=== PATIENT | male | born 1990 | race Caucasian/White ===

== ENCOUNTER 2019-10-05 10:35 | Outpatient (CLI) | payer OTHER, SELFPAY ==
[2019-10-05 11:50] LABS: Hemoglobin A1C 11.5 % (<5.7)
[2019-10-05 12:11] LABS: Basophils Absolute Auto 0.03 K/mm3 (0.00-0.10); Basophils Percent Auto 0.5 % (0.0-1.0); Eosinophils Absolute Auto 0.06 K/mm3 (0.02-0.50); Hematocrit 46.1 % (40.0-54.0); Hemoglobin 15.9 g/dL (14.0-18.0); Immature Granulocyte Absolute 0.03 K/mm3 (0.00-0.00); Immature Granulocyte Percent A 0.5 % (0.0-0.0); Lymphocytes Absolute Auto 1.52 K/mm3 (1.10-4.50); Mean Corpuscular HGB Conc 34.5 g/dL (32.0-36.0); Mean Corpuscular Hemoglobin 29.5 pg (27.0-31.0); Mean Corpuscular Volume 85.5 fL (78.0-102.0); Mean Platelet Volume 11.6 fl (8.7-11.0); Monocytes Absolute Auto 0.37 K/mm3 (0.10-0.90); Monocytes Percent Auto 6.3 % (2.0-11.0); Neutrophils Absolute Auto 3.8 K/mm3 (1.7-7.2); Neutrophils Percent Auto 65.7 % (50.0-70.0); Platelet Count Result 213 K/mm3 (150-420); Red Blood Count 5.39 M/mm3 (4.70-6.10); Red Cell Distribution Width 12.1 % (11.6-14.4); White Blood Count 5.8 K/mm3 (4.8-10.8)
[2019-10-05 12:17] LABS: Creatinine Urine 99.03 mg/dL (40-278)
[2019-10-05 12:19] LABS: MALB Creatinine Ratio 21.8 mg/g (0-30); Microalbumin Urine Random 21.6 mg/L
[2019-10-05 12:25] LABS: Alanine Aminotransferase 84 U/L (16-63); Alkaline Phosphatase 104 U/L (46-116); Anion Gap 18.1 mmol/L (7-16); Aspartate Amino Transferase 33 U/L (15-37); Bilirubin,Total 0.7 mg/dL (0.00-1.00); Blood Urea Nitrogen 21 mg/dL (7-18); Calcium 8.5 mg/dL (8.5-10.1); Carbon Dioxide 24 mmol/L (21-32); Chloride 99 mmol/L (98-108); Cholesterol 167 mg/dL (0-200); Estimated Glomerular Filt Rate > 60; Glucose 307 mg/dL (70-99); HDL Direct 30 mg/dL (40-60); LDL Cholesterol Calculated 79 mg/dL (<130); Osmolality Calculated 299 mOsm/kg (285-295); Potassium 4.1 mmol/L (3.5-5.1); Sodium 137 mmol/L (136-145); Total Protein 6.8 g/dL (6.4-8.2); Triglycerides 292 mg/dL (0-150)
[2019-10-07 04:27] LABS: Insulin Level Total 7.9 uIU/mL (<=19.6)
[2019-10-08 02:53] LABS: C-Peptide 2.37 ng/mL (0.80-3.85)
[2019-10-10 20:12] LABS: Zinc Transporter 8 Antibody <10 U/mL (<15)
== END 2019-10-05 10:36 | disposition home or self-care (01) ==
LOC: CHSLAB 11:27
PROVIDERS: PCP Family Medicine; Visit Provider Family Medicine
DX: R73.9 Hyperglycemia, unspecified (principal)
CPT/HCPCS: 36415; 80053; 80061; 82043; 83036; 83525; 84681; 85025; 86337; 86341

== ENCOUNTER 2019-11-19 22:25 | Inpatient (IN) | payer OTHER, SELFPAY ==
--- NOTE | ~2019-11-19 | CT_ITS ---
EXAMINATION: CT LE LT w con DATE: 11/20/2019 12:31 INDICATION: Left posterior thigh swelling. TECHNIQUE: Computed tomography (CT) of the left thigh was performed with 100 mL Omnipaque 350 intrave nous contrast. Automated exposure control and iterative reconstruction technique were employed. The d ose-length product was 1055.27 mGy-cm. COMPARISON: None FINDINGS: Bone alignment is normal. No fracture. There is mild left hip osteoarthritis. There is mild left knee osteoarthritis. In the posterior thigh, there is subcutaneous fat stranding and skin thick ening, consistent with cellulitis. No drainable abscess. IMPRESSION: 1. Posterior left thigh cellulitis. No abscess. Reviewed, dictated and finalized at location A.
[2019-11-19 22:36] VITALS: BP 140/79; PULSE 101; RESP 18; TEMP 36.6; O2SAT 96
--- NOTE | 2019-11-19 22:58 | ED.WOUNDLAC ---
HPI - Wound/Laceration General Chief Complaint: Wound/Laceration Stated Complaint: infection. told by doc to come in if needed Source: patient Mode of arrival: ambulatory Limitations: no limitations History of Present Illness HPI narrative: Is a 29-year-old gentleman that presents with cellulitis to his right posterior upper leg with an area of erythema with a central lesion that has been draining, he saw his primary care physician today and a line of demarcation was some drawn and has been on antibiotics. Currently the patient presents to the emergency department because the area of demarcation the erythema has extended beyond that according to the patient's . In the patient's notes from his PCP states that the area of demarcation has receded. Currently the area is warm nontender with currently some mild drainage with no fever or chills. Onset (ago): day(s) Extremity Location: Right: thigh Body four view annotation: 1. area of erythema Place: home Patient tetanus UTD: Yes Associated symptoms: none Related Data Home Medications Medication Instructions Recorded Confirmed insulin glargine [Lantus Solostar 10 unit SUBCUT DAILY 11/19/19 11/19/19 U-100 Insulin] Allergies Allergy/AdvReac Type Severity Reaction Status Date / Time sulfamethoxazole AdvReac Intermediate thrush Verified 11/19/19 09:03 [From Bactrim] trimethoprim [From Bactrim] AdvReac Intermediate thrush Verified 11/19/19 09:03 Review of Systems Review of Systems: All systems reviewed & are unremarkable except as noted in HPI and below PMFSH Past Medical History Medical History No active medical problems Surgical History Surgical History No history of previous surgery Family History Family History Father Diabetes mellitus Mother Diabetes mellitus Social History Social History Smoking status: Never smoker Additional living arrangements comments: Lives with maximino. 1 daughter Additional occupation/education comments: [employer] in [place] Exam Const: General: no acute distress and alert Orientation/consciousness: patient oriented x3 HENMT: Head: normal to inspection Eyes: Conjunctivae: conjunctivae normal Pupils: Equal, round and reactive pupils present Neck: Neck: normal visual inspection and no lymphadenopathy Chest: Chest palpation & inspection: normal inspection of the chest Resp: Effort & Inspection: normal respiratory effort Cardio: Rate: regular rate Rhythm: regular rhythm GI: GI Palp: Yes Soft to palpation Percussion: Yes normal to percussion Urinary Catheter: Urinary Catheter: patent and draining Skin: Wounds: wounds noted ( Area of erythema to warm and tender currently no drainage right thigh) Neuro: General: patient oriented x3 and moves all extremities Extrem: General: normal to inspection Psych: Appearance: grossly normal Mental Status: mental status grossly normal Course Course Emergency Course: patient here because he believes the area of erythema has extended beyond the area of demarcation that his primary care physician gerardo on his posterior thigh today. Currently no fevers, offer the patient a shot of ceftriaxone and patient was advised to continue his antibiotics and follow-up with his primary care physician once again if he feels that the area is extending be on the area of demarcation or if any fevers develops. Vital Signs Vital signs: Vital Signs Temperature 36.6 C 11/19/19 22:36 Pulse Rate 101 H 11/19/19 22:36 Respiratory Rate 18 11/19/19 22:36 Blood Pressure 140/79 11/19/19 22:36 Pulse Oximetry 96 11/19/19 22:36 Temperature 36.6 C 11/19/19 22:36 Pulse Rate 101 H 11/19/19 22:36 Respiratory Rate 18
--- NOTE | 2019-11-19 23:23 | PC.NURSE ---
REPORT PROVIDED TO SONJA THOMPSON
[2019-11-19 23:33] LABS: Hematocrit 44.8 % (40.0-54.0); Hemoglobin 15.1 g/dL (14.0-18.0); Mean Corpuscular HGB Conc 33.7 g/dL (32.0-36.0); Mean Corpuscular Hemoglobin 29.4 pg (27.0-31.0); Mean Corpuscular Volume 87.3 fL (78.0-102.0); Mean Platelet Volume 9.9 fl (8.7-11.0); Platelet Count Result 283 K/mm3 (150-420); Red Blood Count 5.13 M/mm3 (4.70-6.10); Red Cell Distribution Width 12.4 % (11.6-14.4); White Blood Count 10.3 K/mm3 (4.8-10.8)
[2019-11-19 23:52] VITALS: BP 142/79; PULSE 100; RESP 18; TEMP 36.6; O2SAT 98
[2019-11-20] VITALS (7 sets, daily range): BP systolic 120–142; BP diastolic 67–89; PULSE 72–92; RESP 16–20; TEMP 36.4–37.1; O2SAT 95–98; BMI 59.5
[2019-11-20] MEDS: SODIUM CHLORIDE 0.9% IV 1,000 ML 100 ML IV CONT ×2 (01:21→11:13)
--- NOTE | 2019-11-20 02:01 | PC.NURSE ---
0005 Pt admitted to the floor as a 23 hr observation. Pt is alert and oriented x4 and states he has had the cellulitis on the back of his thigh since Saturday. Small amount of bloody drainage coming from the center of the sore. Pt states the site is painful to touch.
--- NOTE | 2019-11-20 02:06 | PC.NURSE ---
Pt resting in bed and playing a video game. No other concerns voiced.
--- NOTE | 2019-11-20 02:07 | PC.NURSE ---
0120 IV fluid infusing as ordered. Wound site measure and photographed.
--- NOTE | 2019-11-20 03:09 | PC.NURSE ---
Pt given a snack of soda, cottage cheese and gelatin per his request. Pt doesnt voice any c/o discomfort and IV fluid continues to infuse as ordered.
--- NOTE | 2019-11-20 04:35 | PC.NURSE ---
Pt states he is going to try to get some sleep; Pt doesnt voice any c/o pain or discomfort. IV fluid continues to infuse as ordered.
--- NOTE | 2019-11-20 05:35 | PC.NURSE ---
Pt asleep and IV fluid continues to infuse as ordered. No signs of discomfort noted.
--- NOTE | 2019-11-20 06:46 | PC.NURSE ---
[facility] called regarding pt's lantus order and need for order clarification. Notified Dr. Yousif regarding the order and new orders were received and noted.
[2019-11-20] MEDS: MORPHINE SULFATE 2 MG/ML INJ IV PUSH (07:19)
[2019-11-20 07:40] LABS: Glucose Point of Care 100 (65-105)
[2019-11-20 08:12] LABS: Basophils Absolute Auto 0.02 K/mm3 (0.00-0.10); Basophils Percent Auto 0.3 % (0.0-1.0); Eosinophils Absolute Auto 0.05 K/mm3 (0.02-0.50); Eosinophils Percent Auto 0.7 % (1.0-6.0); Hematocrit 41.5 % (40.0-54.0); Hemoglobin 14.1 g/dL (14.0-18.0); Immature Granulocyte Absolute 0.03 K/mm3 (0.00-0.00); Immature Granulocyte Percent A 0.4 % (0.0-0.0); Lymphocytes Percent Auto 26.1 % (18.0-42.0); Mean Corpuscular Hemoglobin 29.9 pg (27.0-31.0); Mean Corpuscular Volume 87.9 fL (78.0-102.0); Mean Platelet Volume 9.6 fl (8.7-11.0); Monocytes Percent Auto 9.1 % (2.0-11.0); Neutrophils Absolute Auto 4.9 K/mm3 (1.7-7.2); Neutrophils Percent Auto 63.4 % (50.0-70.0); Platelet Count Result 236 K/mm3 (150-420); Red Blood Count 4.72 M/mm3 (4.70-6.10); Red Cell Distribution Width 12.4 % (11.6-14.4); White Blood Count 7.7 K/mm3 (4.8-10.8)
[2019-11-20] MEDS: terbinafine HCL 250 MG TABLET PO (08:16)
[2019-11-20] MEDS: metFORMIN HCL 500 MG TABLET 1000 MG PO ×2 (08:16→17:42)
[2019-11-20 08:28] LABS: Alanine Aminotransferase 44 U/L (16-63); Albumin Level 3.3 g/dL (3.4-5.0); Alkaline Phosphatase 55 U/L (46-116); Aspartate Amino Transferase 31 U/L (15-37); Bilirubin,Total 0.5 mg/dL (0.00-1.00); Blood Urea Nitrogen 15 mg/dL (7-18); Calcium 8.3 mg/dL (8.5-10.1); Carbon Dioxide 26 mmol/L (21-32); Chloride 102 mmol/L (98-108); Estimated CRCL calculation 157 ml/min; Estimated Glomerular Filt Rate > 60; Glucose 102 mg/dL (70-99); Osmolality Calculated 288 mOsm/kg (285-295); Sodium 139 mmol/L (136-145); Total Protein 6.8 g/dL (6.4-8.2)
[2019-11-20 08:33] LABS: Hemoglobin A1C 8.2 % (<5.7)
--- NOTE | 2019-11-20 10:00 | PHAR ---
11/20/19: VERIFIED HOME MEDS. TLS
[2019-11-20 11:01] LABS: Add Urine Microscopic? NO; Appearance Urine Clear (Clear); Bilirubin Urine Negative (Negative); Blood Urine Negative (Negative); Color Urine Yellow (Yellow); Glucose Urine UA Negative (Negative); Ketones Urine Negative (Negative); Leukocyte Esterase Ur Negative (Negative); Nitrate Urine Negative (Negative); Protein Urine Negative (Negative); Specific Grav Ur 1.025 (1.010-1.020); Urobilinogen Urine 0.2 mg/dL (0.2-1.0)
[2019-11-20] MEDS: ONDANSETRON INJ 4 MG/2 ML VIAL IV PUSH (11:14)
[2019-11-20 11:26] LABS: Glucose Point of Care 96 (65-105)
--- NOTE | 2019-11-20 14:17 | PC.NURSE ---
Changed to inpatient status
--- NOTE | 2019-11-20 16:51 | PM.IMHP ---
H&P: HPI History of Present Illness Chief complaint: Cellulitis Narrative: Du Rodríguez is a 29 year old male that presented yesterday to the ER with cellulitis to his left posterior upper leg with an area of erythema with a central lesion that has been draining. He saw his primary care physician Dr. Fay yesterday and a line of demarcation was drawn with a permanent marker so that any progress or worsening could be easily seen. Du has failed his outpatient oral antibiotics that he had been on for more than 48 hours prior to his admission. He has started his oral antibiotics Clindamycin on SaturdayNovember 16. He presented to the emergency room because the area of demarcation was overcome with erythema and the erythema was extending well beyond the permanent marker. At his admission, the area was warm nontender with currently some mild drainage with no fever or chills. Today upon examination, there is a circular area of cellulitis on his posterior left upper leg, with erythema, with a crusted lesion in the center, with significant pain to the touch and warmth. The crusted lesion is at times opening up and draining. The area it to palpation feels very firm and solid, full of inflammation. The patient visibly flinched even with gentle touch and verbally expressed pain. Du is very concerned today as he informed me he has had staph infections in the past citing at least 3 different episodes of MRSA in the past. He was specifically concerned about a past staph infection he had to his chest that became so deep it spread into his chest and rib /chest wall and he had to have surgical intervention and debridement completed. He is very concerned that this new site on his leg will get deeper and or require surgery, and he wants to do everything he can to avoid that. He does have a history of insulin dependent diabetes with elevated A1c levels, 11.5 on 10/05/19 and more recently 8.2 on 11/20/19. We will continue to maintain tight control on his glucose levels, culturing the wound today, monitoring blood and urine cultures, changing his antibiotic from Rocephin to oral Doxycycline paired with IV Vancomycin. Since this is the patient's multiple and repetitive episodes of staph infections, I have given the patient information on 3 different infectious disease physicians, including 2 from [facility] and Dr. Domínguez from the [facility] area. We will complete Hibiclens washings of the site twice a day, otherwise keeping the area clean and dry and with minimal pressure applied. Patient was lying on his abdomen today earlier. I have also encouraged him to ambulate around the hospital floor and get some mild walking exercise. The plan is to monitor the patient for the next 24-48 hours, aiming for less pain to the area, less redness to the area, and less drainage. Will monitor all culture results for growth. Completed patient Education today regarding protecting the rest of his household and how to prevent future Staph infections or repeat or return of Staph infections. Review of Systems Review of Systems: All systems reviewed & are unremarkable except as noted in HPI and below Constitutional: Constitutional: Reports as per HPI, Reports chills, Reports difficulty sleeping ( due to the location of the wound) and Reports weakness ( To the left leg due to pain and tenderness) Eyes: Eyes: Reports as per HPI ENT: Reports as per HPI, Reports Normal hearing present and Denies epistaxis Cardiovascular: Cardiovascular: Reports as per HPI, Denies chest pain, Reports leg edema, Denies lightheadedness and Denies palpitations Respiratory: Respiratory: Reports as per HPI, Denies chest congestion, Denies cough, Denies hemoptysis, Denies dyspnea, Denies dyspnea on exertion and Denies wheezing Gastrointestinal: Gastrointestinal: Reports as per HPI, Denies abdominal pain, Denies melena, Denies bloating, Denies hematochezia, Denies constipation, De
[2019-11-20 17:07] LABS: Glucose Point of Care 68 (65-105)
[2019-11-20] MEDS: SACCHAROMYCES BOULARDII 250 MG CAPSULE PO (17:45)
--- NOTE | 2019-11-20 18:11 | PC.NURSE ---
Refused to take metformin at this time,w ill take at bedtime, left on table f or patient, ate well
[2019-11-20] MEDS: DOXYCYCLINE HYCLATE 100 MG TABLET PO (20:16)
[2019-11-20 20:22] LABS: Glucose Point of Care 95 (65-105)
--- NOTE | 2019-11-20 21:55 | PC.NURSE ---
pt blood sugar reassessed per pt request, result of 85, pt refused Lantus insulin because of this number
[2019-11-20 22:09] LABS: Glucose Point of Care 87 (65-105)
--- NOTE | 2019-11-20 22:24 | PC.NURSE ---
pt given linen and supplies to take a shower
[2019-11-21] VITALS: BP 125/76; PULSE 72; RESP 18; TEMP 36.2; O2SAT 96
--- NOTE | 2019-11-21 00:25 | PC.NURSE ---
Call placed to Dr Pineda regarding pain medication for patient, orders received to change pain medication to Q4 hr instead of Q8
--- NOTE | 2019-11-21 00:50 | PC.NURSE ---
Skin to left leg cellulitis posterior thigh area red, tender to touch and open to air.
--- NOTE | 2019-11-21 01:28 | PM.EVENT ---
Event Note Event Note Event Note: Patient states he still having pain in his posterior left thigh. Alert and oriented. Moderate acute distress. Regular rate rhythm without murmur. Lungs are clear to auscultation bilaterally. Lower extremities are warm dry and pink. Induration erythema the extent of the outlying stevenson on the left posterior thigh. Will attempt to wound culture and imaging of the area to elucidate the extent of the infection. Staph-active drugs such as doxycycline and vancomycin will be started today. I have examined the patient and reviewed the chart. I discussed the patient with A Madhu ODONNELL and agree with her assessment and plan.
[2019-11-21 02:46] LABS: Glucose Point of Care 85 (65-105)
--- NOTE | 2019-11-21 02:56 | PC.NURSE ---
Patient fearful of hypoglycemia; requests Accu-chek; Accu-chek: 85.
[2019-11-21 05:41] LABS: Hematocrit 44.1 % (40.0-54.0); Hemoglobin 14.8 g/dL (14.0-18.0); Mean Corpuscular HGB Conc 33.6 g/dL (32.0-36.0); Mean Corpuscular Hemoglobin 29.5 pg (27.0-31.0); Mean Platelet Volume 9.9 fl (8.7-11.0); Platelet Count Result 240 K/mm3 (150-420); Red Blood Count 5.01 M/mm3 (4.70-6.10); Red Cell Distribution Width 12.4 % (11.6-14.4); White Blood Count 6.3 K/mm3 (4.8-10.8)
[2019-11-21 05:58] LABS: Anion Gap 10.6 mmol/L (7-16); Blood Urea Nitrogen 12 mg/dL (7-18); Calcium 8.7 mg/dL (8.5-10.1); Carbon Dioxide 29 mmol/L (21-32); Chloride 103 mmol/L (98-108); Estimated CRCL calculation 154 ml/min; Estimated Glomerular Filt Rate > 60; Glucose 92 mg/dL (70-99); Osmolality Calculated 287 mOsm/kg (285-295); Potassium 3.6 mmol/L (3.5-5.1); Sodium 139 mmol/L (136-145)
--- NOTE | 2019-11-21 06:21 | PC.NURSE ---
Sleeping, awakens easily to name called; states, feels fine. No distress noted.
[2019-11-21 08:00] VITALS: BP 134/79; PULSE 75; RESP 18; TEMP 36.4; O2SAT 99
[2019-11-21 08:01] LABS: Glucose Point of Care 86 (65-105)
[2019-11-21] MEDS: DOXYCYCLINE HYCLATE 100 MG TABLET PO (09:32)
[2019-11-21] MEDS: SACCHAROMYCES BOULARDII 250 MG CAPSULE PO ×2 (09:33→13:09)
[2019-11-21] MEDS: terbinafine HCL 250 MG TABLET PO (09:34)
[2019-11-21 11:37] LABS: Glucose Point of Care 97 (65-105)
[2019-11-21 12:09] LABS: Vancomycin Trough 6.4 ug/mL (10.0-15.0)
--- NOTE | 2019-11-21 14:45 | PM.DS ---
DS: Admitting Diagnosis Admitting Diagnosis Admitting Diagnosis: Type 2 diabetes mellitus without complications DS: Discharge Diagnosis Discharge Diagnosis (1) Type 2 diabetes mellitus: Code(s): E11.9 - Type 2 diabetes mellitus without complications Status: Acute Assessment and Plan: insulin dependent diabetes with elevated A1c levels, 11.5 on 10/05/19 and more recently 8.2 on 11/20/19. maintain tight control on his glucose levels diabetic diet encourage increased activity and ambulation POC glucose levels have all been under 120 since admission he is to restart his metformin on Saturday morning due to the CT with contrast yesterday - I have informed him of this and instructions are included in his discharge (2) Cellulitis: Qualifiers: Laterality: right Site of cellulitis: extremity Site of cellulitis of extremity: lower extremity Qualified Code(s): L03.115 - Cellulitis of right lower limb Code(s): L03.90 - Cellulitis, unspecified Status: Acute Assessment and Plan: appears to be soft tissue cellulitis only without systemic infection at this time Appears to be slightly smaller on the lateral side, when comparing the permanent marker demarcation on his leg from admission the day before. Du did say it was much less painful today than yesterday , but did inform me that he felt it had opened up and drained more today. patient is not tachycardic and has not had a fever since admission, his white count is normal his wound culture from yesterday shows Gram positive cocci in clusters, likely Staph aureus his blood cultures remain pending and his urine culture remains pending, I have instructed him to follow-up with his PCP for those results changed his antibiotic yesterday from Rocephin to oral Doxycycline paired with IV Vancomycin. he has tolerated the doxycycline vancomycin combination well and his creatinine /BUN/ GFR remained stable he will be discharged on doxycycline and expected to follow up with PCP and ID continue to complete Hibiclens washings of the site twice a day, otherwise keeping the area clean and dry and with minimal pressure applied. his CT yesterday showed in the posterior thigh, there is subcutaneous fat stranding and skin thickening, consistent with cellulitis. No drainable abscess. (3) Hx MRSA infection: Code(s): Z86.14 - Personal history of Methicillin resistant Staphylococcus aureus infection Status: Acute Assessment and Plan: See above plan. given this is the patient's multiple and repetitive episodes of staph infections, I have given the patient information on 3 different infectious disease physicians, including 2 from [facility] and Dr. Domínguez from the [facility] area. Completed patient Education today regarding protecting the rest of his household and how to prevent future Staph infections or repeat or return of Staph infections. I have instructed the patient what to look for in case the wound worsens or he starts to get a systemic infection I have instructed him to follow-up with his PCP to get urine and blood culture results I have instructed him to follow-up with infectious disease for further monitoring of this cellulitis, especially due to his history of multiple staph infections. DS: Summary Time Spent with Patient Time attestation: Total time spent providing and/or coordinating discharge services: >60 minutes Exam Const: General: comfortable, no acute distress, alert and in distress ( mild to moderate distress with palpation to cellulitic area); No confusion Orientation/consciousness: patient oriented x3 and No confusion HENMT: Head: normal to inspection Eyes: General: appearance normal, both eyes and all related structures Conjunctivae: conjunctivae normal Pupils: Equal, round and reactive pupils present EOM: EOMs intact bilaterally Neck: Neck: normal visual inspection and no lymphadenop
== END 2019-11-21 15:39 | disposition home or self-care (01) | DRG 603 ==
LOC: CHSED 23:11 → CHS2ND 11-20 07:12
PROVIDERS: Nurse Practitioner; Admitting Provider Emergency Medicine; Emergency Provider Emergency Medicine; PCP Family Medicine; Visit Provider Emergency Medicine
DX: L03.116 Cellulitis of left lower limb (principal); B95.62 Methicillin resistant Staphylococcus aureus infection as the cause of diseases classified elsewhere; E11.9 Type 2 diabetes mellitus without complications; Z79.4 Long term (current) use of insulin; Z86.14 Personal history of Methicillin resistant Staphylococcus aureus infection
CPT/HCPCS: 36415; 73701; 80048; 80053; 80202; 81003; 83036; 85025; 85027; 87040; 87070; 87077; 87086; 87186; 87205; 96365; 99283; 99285; A9270; J0696; J2270; J2405; J3370; J7030; Q9965

== ENCOUNTER 2020-01-30 23:10 | Emergency (ER) | payer OTHER, SELFPAY ==
[2020-01-30 23:11] VITALS: BP 161/43; PULSE 99; RESP 16; TEMP 36.8; O2SAT 97
[2020-01-30 23:41] VITALS: BP 144/72
[2020-01-31 00:32] LABS: Basophils Absolute Auto 0.03 K/mm3 (0.00-0.10); Basophils Percent Auto 0.3 % (0.0-1.0); Eosinophils Absolute Auto 0.07 K/mm3 (0.02-0.50); Eosinophils Percent Auto 0.7 % (1.0-6.0); Hematocrit 49.5 % (40.0-54.0); Hemoglobin 16.2 g/dL (14.0-18.0); Immature Granulocyte Absolute 0.12 K/mm3 (0.00-0.00); Immature Granulocyte Percent A 1.2 % (0.0-0.0); Lymphocytes Absolute Auto 1.34 K/mm3 (1.10-4.50); Lymphocytes Percent Auto 13.7 % (18.0-42.0); Mean Corpuscular HGB Conc 32.7 g/dL (32.0-36.0); Mean Corpuscular Hemoglobin 29.2 pg (27.0-31.0); Mean Corpuscular Volume 89.4 fL (78.0-102.0); Mean Platelet Volume 10.3 fl (8.7-11.0); Monocytes Absolute Auto 0.62 K/mm3 (0.10-0.90); Monocytes Percent Auto 6.3 % (2.0-11.0); Neutrophils Absolute Auto 7.6 K/mm3 (1.7-7.2); Neutrophils Percent Auto 77.8 % (50.0-70.0); Platelet Count Result 228 K/mm3 (150-420); Red Blood Count 5.54 M/mm3 (4.70-6.10); White Blood Count 9.8 K/mm3 (4.8-10.8)
[2020-01-31] MEDS: SODIUM CHLORIDE 0.9% IV 500 ML IV CONT (00:37)
[2020-01-31] MEDS: MORPHINE SULFATE 4 MG/ML INJ IV PUSH (00:37)
[2020-01-31 00:44] LABS: Alanine Aminotransferase 52 U/L (16-63); Albumin Level 4.2 g/dL (3.4-5.0); Alkaline Phosphatase 73 U/L (46-116); Anion Gap 8 mmol/L (8-16); Aspartate Amino Transferase 25 U/L (15-37); Bilirubin,Total 0.4 mg/dL (0.00-1.00); Blood Urea Nitrogen 18 mg/dL (7-18); Calcium 8.9 mg/dL (8.5-10.1); Carbon Dioxide 29 mmol/L (21-32); Chloride 102 mmol/L (98-108); Estimated CRCL calculation 126 ml/min; Estimated Glomerular Filt Rate > 60; Glucose 93 mg/dL (70-99); Osmolality Calculated 289 mOsm/kg (285-295); Potassium 3.4 mmol/L (3.5-5.1); Sodium 139 mmol/L (136-145); Total Protein 7.6 g/dL (6.4-8.2)
--- NOTE | 2020-01-31 00:45 | ED.SKABFB ---
HPI - Skin/Abscess/Foreign Bdy General Chief complaint: Skin/Abscess/Foreign Body Stated complaint: SWOLLEN NOSE Source: patient Mode of arrival: ambulatory Limitations: no limitations History of Present Illness HPI narrative: 30 y.o. with type 2 DM , hx of recurrent MRSA infections, and morbid obesity c/o pain which started on tip of his nose 2 days ago. Since then the end of the nose has become swollen, red and very painful. On 01/29 he began having throbbing pain at the base of his nose, glabellum and medial cheek region, particularly on the left side. This is associated with feeling dryness and irritation in his left eye. Today he has photophobia. He denies headache, blurred vision, feelings confused/disoriented, neck pain. C & S from leg cellulitis 11/19 grew MRSA sensitive to tetracycline and vancomycin. He was treated with a course of doxycylcine. Related Data Home Medications Medication Instructions Recorded Confirmed insulin glargine [Lantus Solostar 15 unit SUBCUT HS 01/30/20 01/30/20 U-100 Insulin] metformin 500 mg PO BID 01/30/20 01/30/20 Allergies Allergy/AdvReac Type Severity Reaction Status Date / Time sulfamethoxazole AdvReac Intermediate thrush Verified 01/30/20 23:30 [From Bactrim] trimethoprim [From Bactrim] AdvReac Intermediate thrush Verified 01/30/20 23:30 Review of Systems Constitutional: Constitutional: Denies chills Eyes: Eyes: Reports no additional eye complaints, Denies blind spots, Denies blurry vision and Denies other visual disturbances ENT: Reports system reviewed and no additional complaints, except as documented Cardiovascular: Cardiovascular: Denies chest pain Respiratory: Respiratory: Denies dyspnea Gastrointestinal: Comments: Has been having intermittent diarrhea followed by no BM for several days. Last BM 2 days ago. Genitourinary: Genitourinary: Denies dysuria Musculoskeletal: Musculoskeletal: Denies muscle weakness Integumentary/Breasts: Comments: no rash or pain elsewhere. Neurologic: Denies Abnormal speech present, Denies vertigo, Denies lack of coordination and Denies focal weakness Psychiatric: Psychiatric: Reports anxiety and Denies depression Endocrine: Comments: blood sugars have been controlled without needing to take supplementary insulin PMFSH Past Medical History Medical History Athletes foot Hemoglobin A1c 8.0 percent or greater Ingrown toenail MRSA (methicillin resistant Staphylococcus aureus) Severe obstructive sleep apnea-hypopnea syndrome Type 2 diabetes mellitus Surgical History Surgical History History of incision and drainage No history of previous surgery Family History Family History Father Diabetes mellitus Mother Diabetes mellitus Social History Social History Smoking status: Never smoker Alcohol intake: never Substance use: never Additional living arrangements comments: Lives with maximino. 1 daughter Additional occupation/education comments: [employer] in [place] Gender identity (if verbalized by the patient): Male Spiritual care concerns: No Exam Const: General: cooperative and other (appears uncomfortable. Prefers room lights off to decrease facial pain. ) Nutritional Appearance: obese Orientation/consciousness: patient oriented x3 HENMT: Head: other Head images: 1. swollen, red and very tender end of nose region. 2. Tender medial maxillary sinuses and glabellum region Ears: external ears normal and TM's normal bilaterally General nose exam: Normal septum present, normal mucous membranes and turbinates, no nasal discharge noted and Other nasal findings present (tip of nose and nares red, swollen and tender. ) Mouth: Yes Normal oral and palatal muc
[2020-01-31 00:48] LABS: Lactic Acid 1.4 mmol/L (0.4-2.0)
[2020-01-31 00:49] LABS: Partial Thromboplastin Time 32.1 SEC (22.3-31.6)
[2020-01-31 00:54] LABS: D Dimer 0.19 mg/L (0.19-0.50)
[2020-01-31 01:01] VITALS: BP 138/78
[2020-01-31] MEDS: HYDROmorphone HCL 2 MG/ML VIAL 1 MG IV PUSH ×2 (01:09→02:21)
--- NOTE | 2020-01-31 01:10 | PC.NURSE ---
AT 0100 [facility] TRANSFER LINE WAS NOTIFIED FOR A GENERAL NEUROLOGIST CONSULT IN REGARDS TO PT. CURRENT SITUATION. DR. CALIN WAYNE WOULD LIKE THE CONSULT IN REGARDS TO A POSSIBLE CAVERNOUS SINUS THROMBOSIS AND RN HAS REQUESTED A CALL BACK CONSULT SOON POSSIBLE.
--- NOTE | 2020-01-31 01:19 | PC.NURSE ---
DR. GALAVIZ FROM [facility] RETURNED DR. CALIN WAYNE'S PHONE CALL AT 0120 AM IN [facility] TO PT. MAXIMILIAN ARMSTRONG.
--- NOTE | 2020-01-31 01:34 | PC.NURSE ---
AT 0133 THE HOSPITALIST ON DUTY AT [facility] DR. BATES PHONED DR. WAYNE IN REGARDS TO A TRANSFER TO [facility].
[2020-01-31] MEDS: ONDANSETRON INJ 4 MG/2 ML VIAL IV PUSH (02:21)
--- NOTE | 2020-01-31 03:03 | PC.NURSE ---
SONJA THOMAS CALLED REPORT TO SONJA WALSH AT [facility] AT 0300. SONJA MERINO WAS INFORMED OF PT. CURRENT STATUS, REASON FOR TRANSFER, LAST SET OF VITALS, ALL MEDICATIONS WITH DOSES ADMINISTERED, ALLERGIES, LABS AND PT. COMPLAINT. A FACESHEET WAS FAXED TO SONJA WALSH AND [facility] HAS BEEN PAGED OUT. PT. IS CURRENTLY RESTING IN BED.
[2020-01-31 03:13] VITALS: BP 132/61; PULSE 88; RESP 16; TEMP 36.4; O2SAT 100
== END 2020-01-31 03:15 | disposition short-term general hospital (02) ==
PROVIDERS: Emergency Provider Family Medicine; PCP Family Medicine
DX: J34.0 Abscess, furuncle and carbuncle of nose (principal); H49.22 Sixth [abducent] nerve palsy, left eye; E11.9 Type 2 diabetes mellitus without complications
CPT/HCPCS: 36415; 80053; 83605; 85025; 85380; 85610; 85730; 87040; 96365; 96375; 96376; 99285; J1170; J2270; J2405; J3370; J7040

== ENCOUNTER 2020-02-09 09:24 | Outpatient (CLI) | payer OTHER, SELFPAY ==
[2020-02-09 09:35] LABS: Basophils Absolute Auto 0.03 K/mm3 (0.00-0.10); Basophils Percent Auto 0.3 % (0.0-1.0); Eosinophils Absolute Auto 0.08 K/mm3 (0.02-0.50); Eosinophils Percent Auto 0.8 % (1.0-6.0); Hematocrit 49.6 % (40.0-54.0); Hemoglobin 16.1 g/dL (14.0-18.0); Immature Granulocyte Absolute 0.04 K/mm3 (0.00-0.00); Immature Granulocyte Percent A 0.4 % (0.0-0.0); Lymphocytes Absolute Auto 1.88 K/mm3 (1.10-4.50); Lymphocytes Percent Auto 19.2 % (18.0-42.0); Mean Corpuscular HGB Conc 32.5 g/dL (32.0-36.0); Mean Corpuscular Hemoglobin 28.9 pg (27.0-31.0); Mean Platelet Volume 9.6 fl (8.7-11.0); Monocytes Absolute Auto 0.65 K/mm3 (0.10-0.90); Monocytes Percent Auto 6.6 % (2.0-11.0); Neutrophils Absolute Auto 7.1 K/mm3 (1.7-7.2); Neutrophils Percent Auto 72.7 % (50.0-70.0); Platelet Count Result 299 K/mm3 (150-420); Red Blood Count 5.57 M/mm3 (4.70-6.10); Red Cell Distribution Width 12.8 % (11.6-14.4); White Blood Count 9.8 K/mm3 (4.8-10.8)
[2020-02-09 10:43] LABS: Alanine Aminotransferase 65 U/L (16-63); Albumin Level 4.2 g/dL (3.4-5.0); Alkaline Phosphatase 56 U/L (46-116); Anion Gap 13 mmol/L (8-16); Aspartate Amino Transferase 31 U/L (15-37); Bilirubin,Total 0.5 mg/dL (0.00-1.00); Blood Urea Nitrogen 21 mg/dL (7-18); Calcium 9.3 mg/dL (8.5-10.1); Carbon Dioxide 24 mmol/L (21-32); Chloride 104 mmol/L (98-108); Estimated Glomerular Filt Rate > 60; Glucose 99 mg/dL (70-99); Osmolality Calculated 295 mOsm/kg (285-295); Potassium 3.8 mmol/L (3.5-5.1); Sodium 141 mmol/L (136-145); Total Protein 7.6 g/dL (6.4-8.2)
== END 2020-02-09 09:25 | disposition home or self-care (01) ==
PROVIDERS: PCP Family Medicine
DX: H49.22 Sixth [abducent] nerve palsy, left eye (principal); G51.0 Bell's palsy; A49.02 Methicillin resistant Staphylococcus aureus infection, unspecified site; E66.01 Morbid (severe) obesity due to excess calories
CPT/HCPCS: 36415; 80053; 85025

== ENCOUNTER 2020-03-29 11:00 | Outpatient (CLI) | payer OTHER, SELFPAY ==
[2020-03-29 11:19] LABS: Add Urine Microscopic? YES; Appearance Urine Clear (Clear); Bilirubin Urine Negative (Negative); Blood Urine Negative (Negative); Color Urine Yellow (Yellow); Glucose Urine UA 3+ (Negative); Ketones Urine Negative (Negative); Leukocyte Esterase Ur Negative (Negative); Nitrate Urine Negative (Negative); Protein Urine Negative (Negative); Specific Grav Ur >= 1.030 (1.010-1.020); Urobilinogen Urine 0.2 mg/dL (0.2-1.0); pH Urine 5.5 (5.0-8.0)
[2020-03-29 11:47] LABS: Bacteria Urine Trace /hpf; Mucus Urine Few /lpf; RBC Urine 0-2 /hpf (0-2); WBC Urine 0-3 /hpf (0-3)
== END 2020-03-29 11:01 | disposition home or self-care (01) ==
LOC: CHSLAB 11:02
PROVIDERS: PCP Family Medicine; Visit Provider Family Medicine
DX: R21 Rash and other nonspecific skin eruption (principal)
CPT/HCPCS: 81001

== ENCOUNTER 2020-05-06 02:46 | Outpatient (CLI) | payer OTHER, SELFPAY ==
[2020-05-06 19:52] LABS: SARS-CoV-2 RNA PCR Negative
== END 2020-05-06 02:47 | disposition home or self-care (01) ==
LOC: ANHCOVIDDT 02:46
PROVIDERS: PCP Family Medicine; Visit Provider Internal Medicine Critical Care Medicine
DX: Z01.812 Encounter for preprocedural laboratory examination (principal); Z20.828 Contact with and (suspected) exposure to other viral communicable diseases
CPT/HCPCS: 87635; C9803; U0003

== ENCOUNTER 2020-05-09 07:35 | Outpatient (CLI) | payer OTHER, SELFPAY ==
--- NOTE | 2020-06-07 21:51 | WPDSLEEPSTUD ---
Sleep Study Date of Study: 05/09/20 Ordering Provider: Tima Fay DO Interpreting Physician: Barby Dupont MD Sleep Study Type: Polysomnogram Height: 1.57 m Weight: 147.871 kg Body Mass Index: 59.6 Neck Circumference: 18 cm [place]: 7 Reason for Sleep Study loud snoring, difficulty falling asleep Sleep History Du Rodríguez is a 30 year-old man who has difficulty falling asleep and staying asleep. He snores loudly and others complain about it constantly. There is a family history of sleep apnea with both parents having sleep disorders. He occasionally has trouble sleeping with a cold. He does not gasp for breath at night or have breathing problems reported to him by others. He does not sweat excessively at night or notices his heart pounding irregularly at night. He occasionally falls asleep during the day, never involuntarily, rarely while driving. He rarely falls asleep during physical effort. He does not have loss of muscle tone with strong emotion. He rarely has daytime difficulties due to excessive sleepiness, currently works in a [employer]. He does not feel paralyzed on waking or falling asleep. He rarely has vivid dreamlike scenes upon awakening or falling asleep. He is not afraid to go to sleep. He denies nightmares. He does not remember his dreams. He does not have racing thoughts. He rarely feels sad or depressed occasionally has anxiety. He frequently has muscular tension, occasionally notices parts of his body jerking and occasionally kicks at night. He rarely has crawling or aching feelings in his legs at night. He does not have leg pain at night. He denies morning jaw pain and does not grind his teeth at night. He never is bothered by pain during the day. He rarely is awakened by pain at night. He frequently wakes up feeling stiff in the morning was sore achy muscles and pain in the neck and spine. He has fatigue, memory problems, concentration difficulties and insomnia. Normal bedtime is between 1:00 am to 2:00 am, typically waking for 5 minutes to go to the bathroom. He wakes in the morning at 8:00 a.m. On weekends, he goes to bed between 2:00 - 3:00 am, wakes at 10:00 am. He works 2nd shift from 2:00 p.m. to 10:30 p.m. Mondays to Fridays. He does not take naps. A short nap is not refreshing. He feels better in the afternoon compared to other times of day. Habits: Never smoked tobacco. He does drink caffeine. No alcohol or recreational drugs. [facility] Past Medical History Medical History (Updated 06/20/20 @ 05:51 by Barby Dupont MD) Athletes foot Hemoglobin A1c 8.0 percent or greater Ingrown toenail MRSA (methicillin resistant Staphylococcus aureus) Obesity, morbid, BMI 50 or higher Severe obstructive sleep apnea-hypopnea syndrome Type 2 diabetes mellitus Surgical History Surgical History History of incision and drainage No history of previous surgery Family History Family History (Updated 06/08/20 @ 07:42 by Barby Dupont MD) Father Diabetes mellitus Obstructive sleep apnea Mother Diabetes mellitus Obstructive sleep apnea Social History Social History Smoking status: Never smoker Alcohol intake: never Substance use: never Additional living arrangements comments: Lives with maximino. 1 daughter Additional occupation/education comments: [employer] in [place] Gender identity (if verbalized by the patient): Male Spiritual care concerns: No Medications Home Medications Medication Instructions Recorded Confirmed Type pen needle, diabetic 31 gauge x #100 each 12/15/19 01/30/20 Rx 5/16 topiramate 25 mg tablet 25 mg PO DAILY 03/22/20 History doxycycline hyclate 100 mg tablet 100 mg PO BID #10 tablet 03/24/20 03/24/20 Rx ketoconazole 2 % topical cream 1 applic TOPICAL DAILY #15 gm 03/29/20 03/29/20 Rx terbinaf
[2020-06-20 06:07] VITALS: BMI 59.6
== END 2020-05-09 07:36 | disposition home or self-care (01) ==
LOC: ANHCSM 07:35
PROVIDERS: PCP Family Medicine; Visit Provider Family Medicine
DX: G47.33 Obstructive sleep apnea (adult) (pediatric) (principal); R06.83 Snoring
CPT/HCPCS: 95810

== ENCOUNTER 2020-07-03 11:36 | Emergency (ER) | payer OTHER, SELFPAY ==
--- NOTE | ~2020-07-03 | CT_ITS ---
EXAMINATION: CT facial bones w con DATE: 07/03/2020 13:17 INDICATION: Swelling right maxillary sinus area due to infected hair follicle. TECHNIQUE: Computed tomography (CT) of the facial bones was performed with 75 cc Omnipaque 350 intrav enous contrast. The dose-length product was 333.77 mGy-cm. Automated exposure control and iterative r econstruction technique were employed. COMPARISON: None FINDINGS: There is mucosal thickening of the maxillary and ethmoid sinuses. There is soft tissue swel ling/phlegmonous change of the nose and soft tissues anterior to the maxilla without drainable fluid collection to suggest abscess. No intracranial abnormality is identified. There are mildly prominent cervical lymph nodes, likely reactive.. IMPRESSION: 1. Soft tissue swelling/phlegmonous change of the nose and soft tissues anterior to the maxilla bilat erally without drainable abscess. Findings compatible with cellulitis. 2: Mild sinus disease. Reviewed, dictated and finalized at location A. ING PRESS TENDER IMPRESSION: 1. Soft tissue swelling/phlegmonous change of the nose and soft tissues anterio r to the maxilla bilaterally without drainable abscess. Findings compatible wit h cellulitis. 2: Mild sinus disease.
[2020-07-03 11:40] VITALS: BP 157/81; PULSE 94; RESP 19; TEMP 36.4; O2SAT 98
--- NOTE | 2020-07-03 12:00 | ED.SKABFB ---
HPI - Skin/Abscess/Foreign Bdy General Chief complaint: Skin/Abscess/Foreign Body Stated complaint: Infection Time Seen by Provider: 07/03/20 11:39 Source: patient Mode of arrival: ambulatory Limitations: no limitations History of Present Illness HPI narrative: 30-year-old man with type 2 diabetes mellitus and a history of MRSA infections comes in today complaining of pain and swelling in the upper part of his lip and his nose. He states that started for 5 days ago. he states that he has had pain and swelling in his upper lip which seems to be getting worse. He was started 2 days ago on antibiotics (linezolid and Augmentin) by his primary care doctor. He denies headaches, difficulty swallowing, difficulty breathing, vomiting, fever, cough or shortness of breath. MD complaint: abscess/boil Onset (ago): day(s) (4) Location: face Severity: severe Quality: burning and sharp Pain Consistency: constant Relieving factors: none Exacerbating factors: palpation and movement Context: none Associated symptoms: denies other symptoms Treatments prior to arrival: Benadryl, antibiotic and prescription analgesic Related Data Home Medications Medication Instructions Recorded Confirmed topiramate 25 mg tablet 25 mg PO DAILY 03/22/20 07/03/20 Allergies Allergy/AdvReac Type Severity Reaction Status Date / Time sulfamethoxazole AdvReac Intermediate thrush Verified 07/01/20 08:15 [From Bactrim] trimethoprim [From Bactrim] AdvReac Intermediate thrush Verified 07/01/20 08:15 Review of Systems Constitutional: Constitutional: Denies chills and Denies fever(s) Eyes: Eyes: Denies change in vision and Denies photophobia ENT: Denies dysphagia, Denies nasal congestion and Denies sore throat Cardiovascular: Cardiovascular: Denies chest pain and Denies radiating jaw, neck or arm pain Respiratory: Respiratory: Denies cough and Denies dyspnea Gastrointestinal: Gastrointestinal: Denies abdominal pain, Denies nausea and Denies vomiting Genitourinary: Genitourinary: Denies hematuria, Denies dysuria and Denies urinary frequency Musculoskeletal: Musculoskeletal: Denies back pain, Denies arthralgias and Denies joint swelling Integumentary/Breasts: Skin/Breast: Denies pruritus, Denies erythema and Denies rash Neurologic: Denies vertigo, Denies dizziness and Denies syncope Hematologic/Lymphatic: Hematologic/Lymphatic: Denies easy bleeding and Denies easy bruising Allergic/Immunologic: Allergic/Immunologic: Denies lip swelling and Denies tongue swelling PMF Past Medical History Medical History Acute back pain Athletes foot Cellulitis Cellulitis of right thigh Hemoglobin A1c 8.0 percent or greater Ingrown toenail MRSA (methicillin resistant Staphylococcus aureus) Obesity, morbid, BMI 50 or higher Onychomycosis Severe obstructive sleep apnea-hypopnea syndrome Type 2 diabetes mellitus Surgical History Surgical History History of incision and drainage No history of previous surgery Family History Family History Father Diabetes mellitus Obstructive sleep apnea Mother Diabetes mellitus Obstructive sleep apnea Social History Social History Smoking status: Never smoker Alcohol intake: never Substance use: never Additional living arrangements comments: Lives with maximino. 1 daughter Additional occupation/education comments: [employer] in [place] Gender identity (if verbalized by the patient): Male Spiritual care concerns: No Exam Const: General: healthy appearing, no acute distress and alert Nutritional Appearance: obese Orientation/consciousness: patient oriented x3 HENMT: Head: normal to inspection Ears: external ears normal, TM's normal bilaterally an
[2020-07-03 12:33] LABS: Basophils Absolute Auto 0.02 K/mm3 (0.00-0.10); Basophils Percent Auto 0.2 % (0.0-1.0); Eosinophils Absolute Auto 0.05 K/mm3 (0.02-0.50); Eosinophils Percent Auto 0.5 % (1.0-6.0); Hematocrit 47.3 % (40.0-54.0); Hemoglobin 15.5 g/dL (14.0-18.0); Immature Granulocyte Absolute 0.04 K/mm3 (0.00-0.00); Immature Granulocyte Percent A 0.4 % (0.0-0.0); Lymphocytes Absolute Auto 1.44 K/mm3 (1.10-4.50); Lymphocytes Percent Auto 14.2 % (18.0-42.0); Mean Corpuscular HGB Conc 32.8 g/dL (32.0-36.0); Mean Corpuscular Hemoglobin 28.4 pg (27.0-31.0); Mean Corpuscular Volume 86.8 fL (78.0-102.0); Monocytes Absolute Auto 0.68 K/mm3 (0.10-0.90); Monocytes Percent Auto 6.7 % (2.0-11.0); Neutrophils Absolute Auto 7.9 K/mm3 (1.7-7.2); Platelet Count Result 258 K/mm3 (150-420); Red Blood Count 5.45 M/mm3 (4.70-6.10); Red Cell Distribution Width 13.8 % (11.6-14.4); White Blood Count 10.2 K/mm3 (4.8-10.8)
[2020-07-03 12:45] LABS: Alanine Aminotransferase 33 U/L (16-63); Alkaline Phosphatase 64 U/L (46-116); Anion Gap 10 mmol/L (8-16); Aspartate Amino Transferase 18 U/L (15-37); Bilirubin,Total 0.6 mg/dL (0.00-1.00); Blood Urea Nitrogen 17 mg/dL (7-18); Calcium 9.3 mg/dL (8.5-10.1); Carbon Dioxide 24 mmol/L (21-32); Chloride 103 mmol/L (98-108); Estimated Glomerular Filt Rate > 60; Glucose 98 mg/dL (70-99); Osmolality Calculated 285 mOsm/kg (285-295); Potassium 4.1 mmol/L (3.5-5.1); Sodium 137 mmol/L (136-145); Total Protein 7.7 g/dL (6.4-8.2)
[2020-07-03 12:46] LABS: CRP 12.1 mg/dL (0.0-0.9)
[2020-07-03 13:27] LABS: Erythrocyte Sedimentation Rate 5 mm/hr (0-15)
[2020-07-03 13:55] VITALS: BP 117/64
[2020-07-03 14:03] LABS: Glucose Point of Care 79 (65-105)
== END 2020-07-03 13:55 | disposition home or self-care (01) ==
PROVIDERS: Emergency Provider Emergency Medicine; PCP Family Medicine
DX: L03.211 Cellulitis of face (principal)
CPT/HCPCS: 36415; 70487; 80053; 85025; 85652; 86140; 87040; 99283; 99284; Q9965; Q9967

== ENCOUNTER 2020-08-31 11:11 | Outpatient (CLI) | payer OTHER, SELFPAY ==
[2020-08-31 12:20] LABS: Hemoglobin A1C 4.8 % (<5.7)
[2020-08-31 12:38] LABS: Alanine Aminotransferase 44 U/L (16-63); Albumin Level 4.2 g/dL (3.4-5.0); Alkaline Phosphatase 75 U/L (46-116); Anion Gap 11 mmol/L (8-16); Aspartate Amino Transferase 18 U/L (15-37); Bilirubin,Total 0.4 mg/dL (0.00-1.00); Blood Urea Nitrogen 24 mg/dL (7-18); Calcium 9.7 mg/dL (8.5-10.1); Carbon Dioxide 27 mmol/L (21-32); Chloride 105 mmol/L (98-108); Estimated Glomerular Filt Rate > 60; Glucose 86 mg/dL (70-99); Osmolality Calculated 299 mOsm/kg (285-295); Potassium 4.2 mmol/L (3.5-5.1); Sodium 143 mmol/L (136-145); Total Protein 6.9 g/dL (6.4-8.2)
== END 2020-08-31 11:12 | disposition home or self-care (01) ==
PROVIDERS: PCP Family Medicine
DX: E11.9 Type 2 diabetes mellitus without complications (principal); G93.2 Benign intracranial hypertension; Z68.42 Body mass index [BMI] 45.0-49.9, adult
CPT/HCPCS: 36415; 80053; 83036

== ENCOUNTER 2021-03-29 10:44 | Outpatient (CLI) | payer OTHER, SELFPAY ==
[2021-03-29 11:39] LABS: SARS-CoV-2 RNA PCR Positive (Negative)
== END 2021-03-29 10:45 | disposition home or self-care (01) ==
LOC: CHSLAB 10:47
PROVIDERS: PCP Family Medicine; Visit Provider Family Medicine
DX: U07.1 COVID-19 (principal)
CPT/HCPCS: C9803; U0003; U0005

== ENCOUNTER 2021-05-15 13:53 | Emergency (ER) | payer OTHER, SELFPAY ==
--- NOTE | ~2021-05-15 | XR_ITS ---
EXAMINATION: XR chest ET placement DATE: 05/15/2021 15:02 INDICATION: Intubation. TECHNIQUE: A single frontal view of the chest was obtained. COMPARISON: None. FINDINGS: The right lateral costophrenic angle is excluded. There are airspace opacities in all left lung zones. There is a small left pleural effusion. No pneumothorax. The heart size is normal. The en dotracheal tube tip is in the right mainstem bronchus. There is an old healed fracture right fifth ri b. IMPRESSION: 1. Endotracheal tube tip in the right mainstem bronchus. 2. Airspace opacities in all left lung zones, consistent with atelectasis versus pneumonia versus hem orrhage versus asymmetric pulmonary edema. 3. Small left pleural effusion. Reviewed, dictated and finalized at location B. RIOR WORK HELPER IMPRESSION: 1. Endotracheal tube tip in the right mainstem bronchus. 2. Airspace opacities in all left lung zones, consistent with atelectasis versu s pneumonia versus hemorrhage versus asymmetric pulmonary edema. 3. Small left pleural effusion.
--- NOTE | 2021-05-15 14:34 | PC.NURSE ---
attempted to contact pt's per phone et no answer at 1420 and 1430. pt neighbor arrive to home and asked pt to call this er. just spoke with michelle () at this time. she is on her way
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
--- NOTE | 2021-05-15 17:01 | PC.NURSE ---
1708 SEE CODE SHEET
== END 2021-05-15 18:02 | disposition expired ==
PROVIDERS: Emergency Provider Emergency Medicine; PCP Family Medicine
DX: I46.9 Cardiac arrest, cause unspecified (principal); T14.90XA Injury, unspecified, initial encounter; V89.2XXA Person injured in unspecified motor-vehicle accident, traffic, initial encounter
CPT/HCPCS: 31500; 36415; 36430; 36680; 86850; 86900; 86901; 86920; 99285; J0171; J7030; L0150; P9016